=== PATIENT | male | born 1955 | race Caucasian/White ===

== ENCOUNTER 2019-02-20 19:08 | Emergency (ER) | payer OTHER ==
[~2019-02-20] VITALS: Ht 177.8 cm; Wt 81.8 kg
[2019-02-20] MEDS ORDERED: amox tr/potassium clavulanate 875/125mg TAB PO ONE (20:55)
[2019-02-20] MEDS ORDERED: TETanus/Pertussis (Acell)/Diphther VAC/PF (Tdap-Adult) 0.5ml syringe IM ONE (20:55)
--- NOTE | 2019-02-20 21:23 | NUR ---
NURSE CASE MANAGEMENT HAS IRRIGATED WOUND TO LEFT HAND
[2019-02-20] MEDS ORDERED: AMOX-580 PO (22:02)
--- NOTE | 2019-02-20 22:15 | NUR ---
WOUND CLEANED AND DRESSED WITH FINGER SPLINT AND GUAZE
[2019-02-20 22:16] VITALS: BP 140/70
== END 2019-02-20 22:17 | disposition home or self-care (01) ==
LOC: ER 19:08
DX: S61.211A Laceration without foreign body of left index finger without damage to nail, initial encounter (principal); S61.213A Laceration without foreign body of left middle finger without damage to nail, initial encounter; Z98.890 Other specified postprocedural states; Z79.899 Other long term (current) drug therapy; W54.0XXA Bitten by dog, initial encounter; Y93.89 Activity, other specified; Y92.89 Other specified places as the place of occurrence of the external cause; Y99.8 Other external cause status
CPT/HCPCS: 12001; 73120; 90471; 90715; 99283